=== PATIENT | female | born 1930 | race Asian ===

== ENCOUNTER 2019-05-13 20:07 | Emergency (ER) | payer OTHER, MEDICAID ==
[~2019-05-13] VITALS: Ht 165.1 cm; Wt 45.4 kg
[2019-05-13 20:16] VITALS: Ht 165.1 cm; Wt 45.4 kg
[2019-05-13 22:20] VITALS: BP 107/67
== END 2019-05-13 22:20 | disposition home or self-care (01) ==
LOC: ED 20:07
DX: S52.91XD Unspecified fracture of right forearm, subsequent encounter for closed fracture with routine healing (principal); W18.39XD Other fall on same level, subsequent encounter